=== PATIENT | male | born 1945 | race Caucasian/White ===

== ENCOUNTER 2018-01-10 12:22 | Inpatient (IN) | payer MEDICARE ==
[~2018-01-10] VITALS: Ht 180.3 cm; Wt 68.5 kg
--- NOTE | ~2018-01-10 | PN ---
PATIENT:KUMAR JACINTO MEDICAL RECORD: [id number] LOCATION:EMANUEL Jolley112 ADMISSION DATE: 01/10/18 PROGRESS NOTE DATE OF SERVICE: 01/18/2018 SUBJECTIVE: The patient's case was discussed with staff. He has no new complaint. OBJECTIVE: The patient denies intent to harm himself or others. He is very confused. He has limited insight about his situation. ASSESSMENT: No change in diagnoses. PLAN: The patient is going to be started on a low dose of Geodon to assist with his thought disorganization. He will be monitored for clinical changes associated with its use. His long-term prognosis is guarded. TRANSINT:[id number] Voice Confirmation ID: [id number] DOCUMENT ID: [id number] NELLA BERGMAN MD at 1406 CC: [id number] DICTATION DATE: 01/18/18 1352 VIDEO GAME TECHNICIAN: 01/18/18 1357 ADM IN [place] [address] [place] [address]
--- NOTE | ~2018-01-10 | PN ---
PATIENT:KUMAR JACINTO MEDICAL RECORD: [id number] LOCATION:BabsAlANGELES Jolley112 ADMISSION DATE: 01/10/18 PROGRESS NOTE DATE OF SERVICE: 01/28/2018 SUBJECTIVE: The patient's case was discussed with staff. He has no new complaint. OBJECTIVE: The patient received p.r.n. medication yesterday and was agitated. Today, he is calmer. He does not appear to be over sedated. ASSESSMENT: No change in diagnoses. PLAN: I am going to increase the dose of the patient's scheduled Klonopin slightly. Hopefully, this will assist with his agitation. His long-term prognosis is guarded. TRANSINT:[id number] Voice Confirmation ID: [id number] DOCUMENT ID: [id number] NELLA BERGMAN MD at 1100 CC: [id number] DICTATION DATE: 01/28/18 1111 WOOD SHINGLE ROOFER: 01/28/18 1157 ADM IN [facility] [address] [place] [address]
--- NOTE | ~2018-01-10 | PN ---
PATIENT:KUMAR JACINTO MEDICAL RECORD: [id number] LOCATION:EMANUEL Erazo ADMISSION DATE: 01/10/18 PROGRESS NOTE DATE OF SERVICE: 01/17/2018 SUBJECTIVE: The patient's case was discussed with staff. He has no new complaint. OBJECTIVE: The patient is in good behavioral control with limited insight about his condition. He does tolerate his medicines well. Eye contact is fair. ASSESSMENT: No change in diagnoses. PLAN: The patient is not aggressive, but he has been looking very angry and suspicious. I am concerned about the situation, but he denies that there is anything wrong. He also was refusing to take medications, which is problematic as well and he cannot give any reasons why he will not, in fact he insists he did take his medicines, which is not correct. TRANSINT:[id number] Voice Confirmation ID: [id number] DOCUMENT ID: [id number] NELLA BERGMAN MD at 1340 CC: [id number] DICTATION DATE: 01/17/18 1429 MARKET SPECIALIST: 01/17/18 1531 ADM IN [facility] [address] [place] [id number]
--- NOTE | ~2018-01-10 | PN ---
PATIENT:KUMAR JACINTO MEDICAL RECORD: [id number] LOCATION:BabsJAMIEMichelle Jolley112 ADMISSION DATE: 01/10/18 PROGRESS NOTE DATE OF SERVICE: 01/19/2018 SUBJECTIVE: The patient's case was discussed with staff. He has no new complaint. OBJECTIVE: The patient denies intent to harm himself or others. He generally tolerates his medicines well. ASSESSMENT: No change in diagnoses. PLAN: Brief supportive and educational interventions were made. The patient was agitated earlier today and received p.r.n. medications. I am going to increase his dose of Geodon secondary to his psychotic, agitated behavior. TRANSINT:[id number] Voice Confirmation ID: [id number] DOCUMENT ID: [id number] NELLA BERGMAN MD at 1151 CC: [id number] DICTATION DATE: 01/19/18 1422 HEELER: 01/19/18 1431 ADM IN [place] [place] [address]
--- NOTE | ~2018-01-10 | PN ---
PATIENT:KUMAR JACINTO MEDICAL RECORD: [id number] LOCATION:EMANUEL Erazo ADMISSION DATE: 01/10/18 PROGRESS NOTE DATE OF SERVICE: 01/22/2018 SUBJECTIVE: The patient's case was discussed with staff. He has no new complaint. OBJECTIVE: The patient is irritable and easily angered. He has improved since starting the Geodon a couple of days ago, but he still remains easily riled and potentially explosive. ASSESSMENT: No change in diagnoses. PLAN: The patient will have his Zoloft increased to 50 mg daily. His long-term prognosis is guarded. Supportive and educational interventions were made. TRANSINT:[id number] Voice Confirmation ID: [id number] DOCUMENT ID: [id number] NELLA BERGMAN MD at 1354 CC: [id number] DICTATION DATE: 01/22/18 1441 FORENSIC DOCUMENT EXAMINER: 01/22/18 1455 ADM IN [place] [id number] [place] [address]
--- NOTE | ~2018-01-10 | PN ---
PATIENT:KUMAR JACINTO MEDICAL RECORD: [id number] LOCATION:EMANUEL Jolley112 ADMISSION DATE: 01/10/18 PROGRESS NOTE DATE OF SERVICE: 01/20/2018 SUBJECTIVE: The patient's case was discussed with staff. He has no new complaint. OBJECTIVE: The patient has not been consistently taking his medications. He is relatively calm today, but I did learn he was vulgar and extremely sexually inappropriate earlier today. He has no recollection of the event. ASSESSMENT: No change in diagnoses. PLAN: Current medicines and therapies have been reviewed. Supportive and educational interventions were made. TRANSINT:[id number] Voice Confirmation ID: [id number] DOCUMENT ID: [id number] NELLA BERGMAN MD at 1157 CC: [id number] DICTATION DATE: 01/20/18 1157 SIGNING TEACHER: 01/20/18 1202 ADM IN [facility] [address] [place] [address]
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
--- NOTE | ~2018-01-10 | PN ---
PATIENT:KUMAR JACINTO MEDICAL RECORD: [id number] LOCATION:EMANUEL Jolley112 ADMISSION DATE: 01/10/18 PROGRESS NOTE DATE OF SERVICE: 01/23/2018 SUBJECTIVE: The patient's case was discussed with staff. He has no new complaint. OBJECTIVE: The patient denies intent to harm himself or others. He generally tolerates his medicines well. ASSESSMENT: No change in diagnoses. PLAN: Current medicines and therapies have been reviewed, both will be maintained. His long-term prognosis is guarded. He refused his medicines this morning, but cannot say why. TRANSINT:[id number] Voice Confirmation ID: [id number] DOCUMENT ID: [id number] NELLA BERGMAN MD at 0827 CC: [id number] DICTATION DATE: 01/23/18 141 SPUDDER: 01/23/18 1423 ADM IN [facility] [address] [place] [id number]
--- NOTE | ~2018-01-10 | PN ---
PATIENT:KUMAR JACINTO MEDICAL RECORD: [id number] LOCATION:EMANUEL Erazo ADMISSION DATE: 01/10/18 PROGRESS NOTE DATE OF SERVICE: 01/12/2018 SUBJECTIVE: The patient's case was discussed with staff. He has no new complaint. OBJECTIVE: The patient denies intent to harm himself or others. He does tolerate his medicines well. Eye contact is fair. He is severely impaired cognitively, but has not been aggressive today. He does have a depressed mood, but no thoughts of self-harm. ASSESSMENT: No change in diagnoses. PLAN: Current medicines and therapies have been reviewed, both will be maintained. Long-term prognosis is guarded. I am going to add Zoloft to his medication regimen. TRANSINT:[id number] Voice Confirmation ID: [id number] DOCUMENT ID: [id number] NELLA BERGMAN MD at 1234 CC: [id number] DICTATION DATE: 01/12/18 1415 DIESEL ENGINE FITTER: 01/12/18 1422 ADM IN [place] [id number] [place] [address]
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
--- NOTE | ~2018-01-10 | PN ---
PATIENT:KUMAR JACINTO MEDICAL RECORD: [id number] LOCATION:EMANUEL Jolley112 ADMISSION DATE: 01/10/18 PROGRESS NOTE DATE OF SERVICE: 01/25/2018 SUBJECTIVE: The patient's case was discussed with staff. He has no new complaint. OBJECTIVE: The patient is significantly better. He slept last night. He ate well yesterday. He has not been aggressive or threatening. ASSESSMENT: No change in diagnoses. PLAN: I have reviewed the patient's current medications. They will be maintained. I would anticipate he could be transitioned out of the hospital soon if this level of improvement is maintained. TRANSINT:[id number] Voice Confirmation ID: [id number] DOCUMENT ID: [id number] NELLA BERGMAN MD at 1613 CC: [id number] DICTATION DATE: 01/25/18 1144 INCREMENT MANAGER: 01/25/18 1151 ADM IN [facility] [address] [place] [address]
--- NOTE | ~2018-01-10 | PN ---
PATIENT:KUMAR JACINTO MEDICAL RECORD: [id number] LOCATION:EMANUEL Jolley112 ADMISSION DATE: 01/10/18 PROGRESS NOTE DATE OF SERVICE: 01/30/2018 SUBJECTIVE: The patient's case was discussed with staff. He has no new complaint. OBJECTIVE: The patient is tolerating his medicines well. He is extremely confused, but has not been aggressive today. He is eating and sleeping well. ASSESSMENT: No change in diagnoses. PLAN: The patient will be transitioned back to the halfway tomorrow. That is assuming his current level of improvement is maintained. Followup will be with his primary care halfway physician. TRANSINT:[id number] Voice Confirmation ID: [id number] DOCUMENT ID: [id number] NELLA BERGMAN MD at 0846 CC: [id number] DICTATION DATE: 01/30/18 1413 SUPERVISOR BREW HOUSE: 01/30/18 1432 ADM IN [facility] [address] [place] [address]
--- NOTE | ~2018-01-10 | PN ---
PATIENT:KUMAR JACINTO MEDICAL RECORD: [id number] LOCATION:EMANUEL SamreenBailee ADMISSION DATE: 01/10/18 PROGRESS NOTE DATE OF SERVICE: 01/29/2018 SUBJECTIVE: The patient's case was discussed with staff. He has no new complaint. OBJECTIVE: The patient is significantly calmer. He is tolerating his medicines well. ASSESSMENT: No change in diagnoses. PLAN: Current medicines and therapies have been reviewed, both will be maintained. TRANSINT:[id number] Voice Confirmation ID: [id number] DOCUMENT ID: [id number] NELLA BERGMAN MD at 1348 CC: [id number] DICTATION DATE: 01/29/18 1120 MID LEVEL GAME DESIGNER: 01/29/18 1404 ADM IN [place] [id number] [place] [address]
--- NOTE | ~2018-01-10 | PN ---
PATIENT:KUMAR JACINTO MEDICAL RECORD: [id number] LOCATION:EMANUEL Jolley112 ADMISSION DATE: 01/10/18 PROGRESS NOTE DATE OF SERVICE: 01/21/2018 SUBJECTIVE: The patient's case was discussed with staff. He has no new complaint. OBJECTIVE: The patient denies intent to harm himself or others. He unfortunately was very inappropriate sexually earlier today and then became agitated. He has also been refusing his scheduled medicines for reasons that make absolutely no sense. ASSESSMENT: No change in diagnoses. PLAN: Current medicines and therapies have been reviewed. His long-term prognosis is guarded. TRANSINT:[id number] Voice Confirmation ID: [id number] DOCUMENT ID: [id number] NELLA BERGMAN MD at 1426 CC: [id number] DICTATION DATE: 01/21/18 1215 WELDER EXPERIMENTAL: 01/21/18 1225 ADM IN [place] [id number] [place] [id number]
--- NOTE | ~2018-01-10 | PN ---
PATIENT:KUMAR JACINTO MEDICAL RECORD: [id number] LOCATION:EMANUEL Erazo ADMISSION DATE: 01/10/18 PROGRESS NOTE DATE OF SERVICE: 01/27/2018 SUBJECTIVE: The patient's case was discussed with staff. He has no new complaint. OBJECTIVE: The patient denies intent to harm himself or others. He generally tolerates his medicines well. ASSESSMENT: No change in diagnoses. PLAN: The patient has been calm and cooperative. I anticipate he can be discharged soon if this level of improvement continues. TRANSINT:[id number] Voice Confirmation ID: [id number] DOCUMENT ID: [id number] NELLA BERGMAN MD at 1107 CC: [id number] DICTATION DATE: 01/27/18 1018 GLOBAL COMPENSATION DIRECTOR: 01/27/18 1205 ADM IN [place] [address] [place] [address]
--- NOTE | ~2018-01-10 | PN ---
PATIENT:KUMAR JACINTO MEDICAL RECORD: [id number] LOCATION:EMANUEL BriceAlBailee ADMISSION DATE: 01/10/18 PROGRESS NOTE DATE OF SERVICE: 01/14/2018 SUBJECTIVE: The patient's case was discussed with staff. He has no new complaint. OBJECTIVE: The patient is calm today, but quite confused. He was very sexually inappropriate yesterday, but has not been doing so today. He did sleep better last night with the addition of the Trilafon and I think that is helping his thinking organize a little bit today, but he is still not eating adequately. ASSESSMENT: No change in diagnoses. PLAN: Supportive and educational interventions were made. Long-term prognosis is guarded. TRANSINT:[id number] Voice Confirmation ID: [id number] DOCUMENT ID: [id number] NELLA BREGMAN MD at 1351 CC: [id number] DICTATION DATE: 01/14/18 1239 BONE WORKER: 01/14/18 1948 ADM IN [facility] [address] [place] [address]
--- NOTE | ~2018-01-10 | PN ---
PATIENT:KUMAR JACINTO MEDICAL RECORD: [id number] LOCATION:BabsAlANGELES Jolley112 ADMISSION DATE: 01/10/18 PROGRESS NOTE DATE OF SERVICE: 01/24/2018 SUBJECTIVE: The patient's case was discussed with staff. He has no new complaint. OBJECTIVE: The patient denies intent to harm himself or others. He tolerates his medicines well. ASSESSMENT: No change in diagnoses. PLAN: Supportive and educational interventions were made. Long-term prognosis is guarded. I have started him on Klonopin at a low dose of 1/4 of a mg twice daily. TRANSINT:[id number] Voice Confirmation ID: [id number] DOCUMENT ID: [id number] NELLA BERGMAN MD at 1127 CC: [id number] DICTATION DATE: 01/24/18 0958 NETWORK SOLUTIONS ARCHITECT: 01/24/18 1053 ADM IN [facility] [address] [place] [address]
--- NOTE | ~2018-01-10 | PN ---
PATIENT:KUMAR JACINTO MEDICAL RECORD: [id number] LOCATION:EMANUEL Erazo ADMISSION DATE: 01/10/18 PROGRESS NOTE DATE OF SERVICE: 01/12/2018 SUBJECTIVE: The patient's case was discussed with staff. He has no new complaint. OBJECTIVE: The patient has limited insight about his condition. He has been behaving in a sexually inappropriate manner. He has no recollection of this, seems distress that he was doing what is described in the nurses' notes and says that he will not do it again. ASSESSMENT: No change in diagnoses. PLAN: The patient clearly is impaired. He does not have any real recollection of what occurred. I am going to start him on a low dose of an antipsychotic medication to assist with his thought disorganization. His long-term prognosis is guarded. TRANSINT:[id number] Voice Confirmation ID: [id number] DOCUMENT ID: [id number] NELLA BERGMAN MD at 1226 CC: [id number] DICTATION DATE: 01/13/18 1238 JAVA FLEX DEVELOPER: 01/13/18 1243 ADM IN [facility] [address] [place] [id number]
--- NOTE | ~2018-01-10 | PN ---
PATIENT:KUMAR JACINTO MEDICAL RECORD: [id number] LOCATION:BabsAlANGELES Jolley112 ADMISSION DATE: 01/10/18 PROGRESS NOTE DATE OF SERVICE: 01/26/2018 SUBJECTIVE: The patient's case was discussed with staff. He has no new complaint. OBJECTIVE: The patient is in good behavioral control with limited insight about his condition. He has not been aggressive today. He slept well last night and ate well yesterday. ASSESSMENT: No change in diagnoses. PLAN: The patient has made a dramatic improvement in the past 2 days. If this is maintained through the weekend, I will discuss discharging him with the treatment team on Monday. TRANSINT:[id number] Voice Confirmation ID: [id number] DOCUMENT ID: [id number] NELLA BERGMAN MD at 1007 CC: [id number] DICTATION DATE: 01/26/18 1627 LIQUEFIER: 01/26/18 1632 ADM IN [place] [id number] [place] [address]
--- NOTE | ~2018-01-10 | PN ---
PATIENT:KUMAR JACINTO MEDICAL RECORD: [id number] LOCATION:EMANUEL Samreen112 ADMISSION DATE: 01/10/18 PROGRESS NOTE DATE OF SERVICE: 01/31/2018 SUBJECTIVE: The patient's case was discussed with staff. He has no new complaint. OBJECTIVE: The patient is in good behavioral control. He has very limited insight about his condition. He generally is tolerating his medicines reasonably well. He is eating and sleeping well. ASSESSMENT: No change in diagnoses. PLAN: Based on the patient's improvement over the past several days, I am going to transition him back to the [facility] today. Followup will be with his primary care [facility] physician. TRANSINT:[id number] Voice Confirmation ID: [id number] DOCUMENT ID: [id number] NELLA BERGMAN MD at 0951 CC: [id number] DICTATION DATE: 01/31/18 0858 PEDICAB DRIVER: 01/31/18 1231 DIS IN 01/31/18 [facility] [address] [place] [address]
--- NOTE | ~2018-01-10 | PN ---
PATIENT:KUMAR JACINTO MEDICAL RECORD: [id number] LOCATION:EMANUEL Jolley112 ADMISSION DATE: 01/10/18 PROGRESS NOTE DATE OF SERVICE: 01/16/2018 SUBJECTIVE: The patient's case was discussed with staff. He has no new complaint. OBJECTIVE: The patient is in good behavioral control. He has not been aggressive. I think there is a slight shuffling nature to his gait that I do not recall him previously having. He has not received any Haldol recently and he is taking the Trilafon, which typically does not cause movements of this kind since it is not a high potency neuroleptic, but just based on caution, I think I am going to go ahead and discontinue the Trilafon and see if I notice any improvement in how he walks. ASSESSMENT: No change in diagnoses. PLAN: As above, the Trilafon will be stopped and he will be observed. TRANSINT:[id number] Voice Confirmation ID: [id number] DOCUMENT ID: [id number] NELLA BERGMAN MD at 1419 CC: [id number] DICTATION DATE: 01/16/18 1430 PLASTER FOREMAN: 01/16/18 1540 ADM IN [facility] [address] [place] [id number]
--- NOTE | ~2018-01-10 | PN ---
PATIENT:KUMAR JACINTO MEDICAL RECORD: [id number] LOCATION:EMANUEL Jolley112 ADMISSION DATE: 01/10/18 PROGRESS NOTE DATE OF SERVICE: 01/15/2018 SUBJECTIVE: The patient's case was discussed with staff. He has no new complaint. OBJECTIVE: The patient denies intent to harm himself or others. He is tolerating his medicines well. He has been quite confused, but has not been openly agitated or aggressive. ASSESSMENT: No change in diagnoses. PLAN: Unfortunately, the patient's wants him to return home with her and not be in a long-term. I think that that is probably going to be more than she can handle, but these are her wishes and the situation does not come anywhere close to rising to the level where it needs to be reported to the authorities, but I am not optimistic about this setting as far as her being able to care for him and have made those views known. ASSESSMENT: No change in diagnoses. PLAN: The patient is better. If this level of improvement is maintained, he can be transitioned home soon. He will be maintained on his current medicines. TRANSINT:[id number] Voice Confirmation ID: [id number] DOCUMENT ID: [id number] NELLA BERGMAN MD at 1416 CC: [id number] DICTATION DATE: 01/15/18 1542 EYE GLASS FRAME POLISHER: 01/15/18 1624 ADM IN [facility] [address] [place] [address]
[2018-01-10] MEDS ORDERED: DONEPEZIL HCL5 M1 PO (13:49)
[2018-01-10] MEDS ORDERED: ASCORBIC ACID500 MG PO (13:50)
[2018-01-10] MEDS ORDERED: ELIQUIS2.5 MG PO (13:52)
[2018-01-10] MEDS ORDERED: DEPAKOTE125 MG PO (13:52)
[2018-01-10] MEDS ORDERED: FLOMAX0.4 MG PO (13:53)
[2018-01-10] MEDS ORDERED: NAMENDA10 MG PO (13:54)
[2018-01-10] MEDS ORDERED: TOPROL XL25 MG PO (13:55)
[2018-01-10] MEDS ORDERED: MULTI-DAY VITAM1 TAB PO (13:55)
[2018-01-10] MEDS ORDERED: OXYCODONE-APAP1 T10 PO ×2 (13:56→13:57)
[2018-01-10] MEDS ORDERED: PRAVASTATIN SOD10 MG PO (13:57)
[2018-01-10 16:45] LABS: APPEARANCE CLEAR (CLEAR); BILIRUBIN NEGATIVE (NEGATIVE); COLOR YELLOW (YELLOW); GLUCOSE NEGATIVE (NEGATIVE); KETONE NEGATIVE (NEGATIVE); NITRITE NEGATIVE (NEGATIVE); PROTEIN NEGATIVE (NEGATIVE); UROBILINOGEN NORMAL (NORMAL)
[2018-01-10 18:43] VITALS: BP 137/69; BMI 21.1
[2018-01-10 20:26] VITALS: BP 103/57
[2018-01-11 10:09] VITALS: BP 168/67
[2018-01-11 10:29] VITALS: BMI 21.1
[2018-01-11 13:31] VITALS: Ht 180.3 cm; Wt 68.5 kg
[2018-01-12 07:11] LABS: ALBUMIN 2.9 g/dL (3.4-5.0); ALKALINE PHOSPHATASE 75 U/L (46-116); ALT (SGPT) 32 U/L (10-68); CALC OSMOLALITY 283 mosm/kg (275-300); CARBON DIOXIDE 30.6 mmol/L (21.0-32.0); CHLORIDE - SERUM 107 mmol/L (98-107); CHOL - HDL RATIO 2.4 ratio (2.3-4.9); CHOLESTEROL, TOTAL 147 mg/dL (0-200); GLUCOSE 90 mg/dL (74-106); HDL CHOLESTEROL 61 mg/dL (32-96); LDL CHOLESTEROL 80 mg/dL (0-100); LDL-HDL RATIO 1.3 ratio (1.5-3.5); POTASSIUM - SERUM 4.1 mmol/L (3.5-5.1); SODIUM 142 mmol/L (136-145); THYROID STIMULATING HORMONE 1.45 uIU/mL (0.36-3.74); TRIGLYCERIDE 30 mg/dL (30-200); UREA NITROGEN 16 mg/dL (7-18); VALPROIC ACID (DEPAKOTE) 6.6 ug/mL (50.0-100.0); eGFR NON AFRICAN AMERICAN 78 mL/min (90-120)
[2018-01-12 07:44] LABS: BASOPHILS 0.3 % (0-2); HEMATOCRIT 38.8 % (42.0-54.0); HEMOGLOBIN 12.7 g/dL (13.5-17.5); IMMATURE GRANULOCYTES 0.3 % (0-5); LYMPHOCYTES 32.5 % (15-50); MCH 29.5 pg (26.0-34.0); MCHC 32.7 g/dL (31.0-37.0); MEAN PLATELET VOLUME 9.4 fL (7.4-10.4); MONOCYTES 13.2 % (2-11); NEUTROPHILS 49.7 % (40-80); PLATELET COUNT 143 10x3/uL (130-400); RBC 4.31 10x6/uL (4.20-6.10); RDW 13.5 % (11.5-14.5); WBC 6.2 10x3/uL (4.8-10.8)
[2018-01-12 10:41] VITALS: BP 154/80
[2018-01-12 20:00] VITALS: BP 118/78
[2018-01-13 06:15] LABS: VITAMIN D 25 HYDROXY 26.6 ng/mL (30.0-100.0)
[2018-01-13 08:16] LABS: FOLATE (FOLIC ACID) - SERUM >20.0 ng/mL (>3.0); RAPID PLASMA REAGIN Non Reactive (Non Reactive)
[2018-01-13 10:15] VITALS: BP 109/66
[2018-01-13 20:00] VITALS: BP 144/88
[2018-01-14 11:02] VITALS: BP 122/70
[2018-01-14 19:47] VITALS: BP 124/62
[2018-01-15 07:00] VITALS: BP 134/64
[2018-01-15 19:50] VITALS: BP 113/64
[2018-01-16 10:00] VITALS: BP 100/56
[2018-01-16 19:46] VITALS: BP 131/73
[2018-01-17 08:00] VITALS: BP 104/71
[2018-01-17 20:24] VITALS: BP 129/60
[2018-01-18 21:02] VITALS: BP 135/73
[2018-01-19 09:07] VITALS: BP 120/66
[2018-01-19 19:48] VITALS: BP 119/56
[2018-01-20 08:35] VITALS: BP 115/68
[2018-01-20 19:39] VITALS: BP 146/73
[2018-01-21 08:00] VITALS: BP 122/71
[2018-01-21 19:59] VITALS: BP 149/75
[2018-01-22 09:57] VITALS: BP 135/70
[2018-01-22 20:29] VITALS: BP 130/64
[2018-01-23 08:00] VITALS: BP 153/68
[2018-01-23 20:02] VITALS: BP 141/75
[2018-01-24 08:35] VITALS: BP 128/78
[2018-01-24 19:50] VITALS: BP 122/68
[2018-01-25 07:38] VITALS: BP 128/68
[2018-01-25 10:05] VITALS: BP 128/68
[2018-01-25 20:00] VITALS: BP 136/75
[2018-01-26 09:26] VITALS: BP 129/71
[2018-01-26 20:04] VITALS: BP 121/59
[2018-01-27 10:30] VITALS: BP 98/67
[2018-01-27 20:27] VITALS: BP 128/72
[2018-01-28 07:51] VITALS: BP 142/86
[2018-01-28 20:14] VITALS: BP 115/53
[2018-01-29 08:00] VITALS: BP 108/59
[2018-01-29 19:57] VITALS: BP 133/65
[2018-01-30 09:30] VITALS: BP 139/79
[2018-01-30] MEDS ORDERED: ZOLOFT50 MG PO (14:16)
[2018-01-30] MEDS ORDERED: VITAMIN B-121000 MCG PO (14:17)
[2018-01-30] MEDS ORDERED: KLONOPIN0.5 MG PO ×2 (14:17)
[2018-01-30] MEDS ORDERED: VITAMIN D5000 UNIT PO (14:17)
[2018-01-30] MEDS ORDERED: GEODON20 MG PO (14:17)
[2018-01-30 20:51] VITALS: BP 116/62
[2018-01-31 08:00] VITALS: BP 139/74
== END 2018-01-31 17:05 | DRG 57 ==
LOC: D.PSYCH 12:22
PROVIDERS: Psychiatry & Neurology Psychiatry
DX: I69.318 Other symptoms and signs involving cognitive functions following cerebral infarction (principal); F01.51 Vascular dementia, unspecified severity, with behavioral disturbance; I25.119 Atherosclerotic heart disease of native coronary artery with unspecified angina pectoris; I10 Essential (primary) hypertension; R26.9 Unspecified abnormalities of gait and mobility; Z91.81 History of falling; E78.5 Hyperlipidemia, unspecified; D64.9 Anemia, unspecified; N40.0 Benign prostatic hyperplasia without lower urinary tract symptoms; E55.9 Vitamin D deficiency, unspecified; E53.8 Deficiency of other specified B group vitamins